=== PATIENT | female | born 1965 | race American Indian/Alaskan Native ===

== ENCOUNTER 2017-01-19 08:32 | Emergency (ER) | payer OTHER ==
[~2017-01-19] VITALS: Ht 157.5 cm; Wt 48.0 kg
[2017-01-19 08:34] VITALS: Ht 157.5 cm; Wt 48.0 kg
[2017-01-19] MEDS ORDERED: KETOROLAC 30 MG INJ IM STA (08:54)
--- NOTE | 2017-01-19 09:17 | ERD ---
ER Documentation Chief Complaint Date/Time DATE: 01/19/17 TIME: 09:14 Chief Complaint left arm pain x 1 week HPI Patient is a 51-year-old female with no past medical history who presents to the ED with left shoulder pain and unable to move her left arm 1 week. States that the pain came on suddenly but has gotten worse in the last week. Also complains of left sided neck pain. Denies headache or dizziness, trauma. Denies falls. Denies chest pain or cough or shortness of breath. Denies heart disease. 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 She has taken Motrin 600 mg with minimal relief. States that the pain is localized to her left neck left shoulder to left elbow. ROS All systems reviewed and are negative except as per history of present illness. Medications Home Meds Active Scripts Naproxen* (Naprosyn*) 500 Mg Tablet, 500 MG PO BID Y for PAIN AND/OR INFLAMMATION, #30 TAB Prov:SHREE MATOS PA-C 01/19/17 Allergies Allergies: Coded Allergies: No Known Allergy (Unverified , 01/19/17) PMhx/Soc Medical and Surgical Hx: pt denies Medical Hx, pt denies Surgical Hx Hx Alcohol Use: No Hx Substance Use: No Hx Tobacco Use: No Smoking Status: Never smoker Physical Exam Vitals Vital Signs Date Time Temp Pulse Resp B/P Pulse Ox O2 Delivery O2 Flow Rate FiO2 01/19/17 09:26 100 16 98 Room Air 01/19/17 08:34 98.7 103 19 139/83 92 Physical Exam GENERAL: Well-developed, well-nourished female. Appears in no acute distress. HEAD: Normocephalic, atraumatic. LUNG: Clear to auscultation bilaterally. No rhonchi, wheezing, rales or coarse breath sounds. HEART: Regular rate and rhythm. No murmurs, rubs or gallops. Extremities: Equal pulses bilaterally. No peripheral clubbing, cyanosis or edema. No unilateral leg swelling. limited rom in left shoulder. unable to fully extend, flexion, abduct or adduct. no pain below elbow joint. + cervical radiculopathy on left side of neck. NEUROLOGIC: Alert and oriented.. 5/5 strength in all extremities. Normal speech. Steady gait. SKIN: Normal color. Warm and dry. No rashes or lesions. Capillary refill < 2 seconds Results 24 hrs Current Medications Medications (Trade) Dose Ordered Sig/Lexx Route PRN Reason Start Time Stop Time Status Last Admin Dose Admin Ketorolac Tromethamine (Toradol) 30 mg ONCE STAT IM 01/19/17 08:54 01/19/17 08:55 DC 01/19/17 09:06 Procedures/MDM ER COURSE: I kept the patient and/or family informed of laboratory and diagnostic imaging results throughout the emergency room course. MEDICAL DECISION MAKING: This is a 51-year-old female who presents with left shoulder pain 1 week. Vital signs were reviewed. Patient is afebrile. Patient is not hypoxic. Is not toxic or ill-appearing. X-ray is read by radiologist is unremarkable for fracture dislocation. Patient likely has adhesive capsulitis of the left shoulder. Patient was given Toradol 30 mg IM, tolerated well with no adverse reaction. Patient given prescription for Naprosyn. Advised to follow-up with primary care provider and printing specialist if symptoms do not improve in the next week. Low suspicion for dislocation, fracture, septic joint, compartment syndrome, osteomyelitis, cellulitis, avascular necrosis, neurological injury, vascular injury, tendon laceration. DISCHARGE: At this time, patient is stable for discharge and outpatient management with no new complaints during the ER course. Patient was sent home with Naprosyn. Patient will be discharged home with instructions to recheck for new or worsening symptoms such as fever, nausea, weakness, LOC and to follow up with primary care in the next 1-2 days. Patient was advised to return to the ER for any new or worsening symptoms. Plan was discussed and patient and/or family understands and agrees. Home instructions were given. Departure Diagnosis: Primary Impression: Adhesive capsulitis of left shoulder Condition: Stable SHREE MATOS PA-C Jan 19, 2017 09:17
[2017-01-19] MEDS ORDERED: NAPR-260 PO (09:19)
[2017-01-19 09:26] VITALS: PULSE 100; RESP 16
--- NOTE | 2017-01-19 09:30 | RADRPT ---
PROCEDURE: Shoulder x-ray CLINICAL INDICATION: Pain TECHNIQUE: Left shoulder 3 views COMPARISON: None FINDINGS: 3 views of the left shoulder demonstrate no displaced fracture. The humeral head articulates anatom ically with the glenoid fossa. The acromioclavicular articulation is within normal limits. Bones a re normally mineralized. Soft tissues are unremarkable. IMPRESSION: No acute fracture dislocation No significant degenerate change RPTAT: HH .Dat Martinez MD, Date Time Electronically viewed and signed by .Dat Martinez MD, on 01/19/2017 09:30 .W/
== END 2017-01-19 10:15 | disposition home or self-care (01) ==
LOC: FTE 08:32
DX: M75.02 Adhesive capsulitis of left shoulder (principal)
CPT/HCPCS: 73030; 96372; J1885; Z7502